=== PATIENT | female | born 1955 | race Caucasian/White ===

== ENCOUNTER 2016-10-20 14:40 | Emergency (ER) | payer OTHER ==
[~2016-10-20] VITALS: Ht 167.6 cm; Wt 80.0 kg
[~2016-10-20 14:40] MED LIST: ALBU8.5H3 INH; CEPH-368 PO; CYCL5TAB PO; GABA300C PO; HYDR4TAB16 PO; METH500T97 PO; OMEP20CA9 PO; OXYC-302 PO; VARE1TAB21 PO; proair inhaler; tylenol
[2016-10-20 16:45] VITALS: BP 117/60
== END 2016-10-20 16:47 | disposition home or self-care (01) ==
LOC: ED 15:47
DX: S93.492A Sprain of other ligament of left ankle, initial encounter (principal); J44.9 Chronic obstructive pulmonary disease, unspecified; Z87.891 Personal history of nicotine dependence; X50.1XXA Overexertion from prolonged static or awkward postures, initial encounter; Y93.89 Activity, other specified; Y99.8 Other external cause status; Y92.009 Unspecified place in unspecified non-institutional (private) residence as the place of occurrence of the external cause
CPT/HCPCS: 99284

== ENCOUNTER → 2016-10-30 | Outpatient (CLI) | payer OTHER | END | disposition home or self-care (01) | LOC: CFH 13:06 | PROVIDERS: ATTEND Internal Medicine | DX: R92.2 Inconclusive mammogram (principal); R59.0 Localized enlarged lymph nodes ==

== ENCOUNTER → 2016-11-24 | Outpatient (CLI) | payer OTHER ==
[~2016-11-24] MED LIST changes: -HYDR4TAB16 PO; +HYDR4TAB48 PO
== END | disposition home or self-care (01) ==
LOC: CFH 13:42
PROVIDERS: ATTEND Internal Medicine
DX: R22.42 Localized swelling, mass and lump, left lower limb (principal)

== ENCOUNTER → 2016-12-09 | Outpatient (CLI) | payer OTHER | END | disposition home or self-care (01) | LOC: RAD 12:26 | PROVIDERS: ATTEND Neurological Surgery | DX: M43.27 Fusion of spine, lumbosacral region (principal) | CPT/HCPCS: 72110 ==

== ENCOUNTER 2018-03-04 11:56 | Emergency (ER) | payer OTHER ==
[~2018-03-04] VITALS: Ht 160 cm; Wt 83.1 kg
[~2018-03-04 11:56] MED LIST changes: -ALBU8.5H3 INH; +ALBU8.5H8 INH; +CYCL-259 PO; +GABA300C10 PO; +HYDR-3307 PO; +OMEP40CA6 PO; +PRIM50TA34 PO
[2018-03-04] MEDS ORDERED: HYDROmorphone 2 MG/ML, 1ML ONE (13:38)
[2018-03-04] MEDS ORDERED: HYDROmorphone 1 MG/ML, 1ML IM ONE (14:00)
[2018-03-04 15:32] VITALS: BP 146/80
== END 2018-03-04 15:34 | disposition home or self-care (01) ==
LOC: ED 12:32
DX: S42.255A Nondisplaced fracture of greater tuberosity of left humerus, initial encounter for closed fracture (principal); S00.83XA Contusion of other part of head, initial encounter; I10 Essential (primary) hypertension; G43.909 Migraine, unspecified, not intractable, without status migrainosus; J44.9 Chronic obstructive pulmonary disease, unspecified; W01.0XXA Fall on same level from slipping, tripping and stumbling without subsequent striking against object, initial encounter; Y93.89 Activity, other specified; Y99.8 Other external cause status; Y92.89 Other specified places as the place of occurrence of the external cause
CPT/HCPCS: 29105; 70450; 70486; 72072; 72125; 73060; 96372; 99284; J1170